=== PATIENT | female | born 1980 | race Caucasian/White ===

== ENCOUNTER → 2024-02-24 12:05 | Outpatient (REF) | payer OTHER, SELFPAY | LOC: HWWDC 12:05 | PROVIDERS: ATTENDING PHYSICIAN Nurse Practitioner Adult Health | DX: Z12.31 Encounter for screening mammogram for malignant neoplasm of breast (principal) | CPT/HCPCS: 77063; 77067 ==

== ENCOUNTER → 2024-06-19 15:03 | Outpatient (REF) | payer OTHER, SELFPAY | LOC: HWRCS 15:03 | PROVIDERS: ATTENDING PHYSICIAN Internal Medicine Cardiovascular Disease; FAMILY PHYSICIAN Nurse Practitioner Adult Health | DX: R55 Syncope and collapse (principal) | CPT/HCPCS: 93306 ==

== ENCOUNTER → 2025-02-24 13:10 | Outpatient (REF) | payer OTHER, SELFPAY | LOC: HWWDC 13:10 | PROVIDERS: ATTENDING PHYSICIAN Nurse Practitioner Adult Health | DX: Z12.31 Encounter for screening mammogram for malignant neoplasm of breast (principal) | CPT/HCPCS: 77063; 77067 ==